=== PATIENT | male | born 1965 | race Caucasian/White ===

== ENCOUNTER 2020-02-27 02:27 | Emergency (ER) | payer MEDICAID ==
[~2020-02-27] VITALS: Ht 165.1 cm; Wt 81.8 kg
[2020-02-27] MEDS ORDERED: MELA1TAB8 PO (03:07)
[2020-02-27] MEDS ORDERED: 0.9% SODIUM CHLORIDE 10 ML SYRINGE IVP PRN (03:15)
[2020-02-27] MEDS ORDERED: SODIUM CHLORIDE 0.9% 2,500 ML IV ONE (03:15)
[2020-02-27] MEDS ORDERED: IBUPROFEN 800 MG TABLET PO ONE (03:45)
[2020-02-27] MEDS ORDERED: CHLO10TA14 PO (03:51)
[2020-02-27 04:22] LABS: COVID AG,FIA SOURCE NASOPHARYNGEAL
[2020-02-27 04:46] LABS: INFLUENZA TYPE A NEGATIVE FOR TYPE A (NEGATIVE); INFLUENZA TYPE B NEGATIVE FOR TYPE B (NEGATIVE)
[2020-02-27 05:56] VITALS: BP 133/83
== END 2020-02-27 06:08 | disposition home or self-care (01) ==
LOC: EMS 02:33
DX: U07.1 COVID-19 (principal); E78.00 Pure hypercholesterolemia, unspecified; Z79.899 Other long term (current) drug therapy
CPT/HCPCS: 87426; 87804; 71045-TC

== ENCOUNTER 2020-03-18 11:25 | Emergency (ER) | payer MEDICAID ==
[~2020-03-18] VITALS: Ht 165.1 cm; Wt 81.8 kg
[~2020-03-18 11:25] MED LIST: CHLO10TA14 PO; MELA1TAB8 PO
[2020-03-18 12:22] VITALS: BP 136/80
[2020-03-18 12:45] LABS: COVID AG,FIA SOURCE NASOPHARYNGEAL
== END 2020-03-18 13:42 | disposition home or self-care (01) ==
LOC: EMS 11:25
DX: R51.9 Headache, unspecified (principal); R50.9 Fever, unspecified; E78.00 Pure hypercholesterolemia, unspecified; Z20.828 Contact with and (suspected) exposure to other viral communicable diseases
CPT/HCPCS: 87426; 99283; U0003